=== PATIENT | female | born 1980 | race African-American/Black ===

== ENCOUNTER 2017-05-14 01:30 | Observation (INO) | payer OTHER ==
[~2017-05-14] VITALS: Ht 167.6 cm; Wt 104.2 kg
[2017-05-14 02:12] LABS: EOSINOPHIL (%) 1.7 % (0-5); EOSINOPHIL COUNT 0.1 K/uL (0-0.3); IMMATURE GRANULOCYTE (%) 0.5 % (0.0-0.7); INSTRUMENT ABS NEUTROPHIL CT 2.7 K/uL; LYMPHOCYTE COUNT 3.2 K/uL (1.0-2.8); MCH 26.8 PG (29.0-34.0); MCHC 32.1 G/DL (30.0-36.0); MCV 83.7 FL (83-99); MEAN PLAT.VOLUME 12.5 uM^3 (9.5-12.4); MONOCYTE (%) 6.3 % (3-12); MONOCYTE COUNT 0.4 K/uL (0-0.8); NEUTROPHIL (%) 41.5 % (45-76); NEUTROPHIL COUNT 2.7 K/uL (1.8-6.4); PLATELET COUNT 178 K/uL (156-360); RBC DIS.WIDTH-SD 43.2 % (39-53); RED BLOOD COUNT 4.66 M/uL (3.80-5.20); WHITE BLOOD COUNT 6.6 K/uL (4.1-10.2)
[2017-05-14 02:26] LABS: CHLORIDE 106 mEq/L (99-109); POTASSIUM 3.4 mEq/L (3.7-5.4); SODIUM 138 mEq/L (136-147)
[2017-05-14 02:28] LABS: GLUCOSE 102 mg/dL (70-99)
[2017-05-14 02:29] LABS: ANION GAP 8 MEQ/L (2-14)
[2017-05-14 02:30] LABS: TOTAL BILIRUBIN 0.4 mg/dL (0.0-1.0)
[2017-05-14 02:32] LABS: ALKALINE PHOSPHATASE 89 IU/L (3-129); GFR ESTIMATE (CALCULATED) > 59 mL/min/
[2017-05-14 02:33] LABS: TROP-I INTERPRETATION NEGATIVE; TROPONIN-I < 0.01 ng/mL (0.0-0.30); UREA NITROGEN (BUN) 12 mg/dL (9-23)
[2017-05-14 02:41] LABS: QUANTITATIVE HCG < 4.0 MIU/ML
[2017-05-14 05:28] VITALS: BP 123/72
[2017-05-14 08:45] VITALS: BP 121/91
[2017-05-14 09:34] LABS: HDL CHOLESTEROL 34 MG/DL (Desirable>=50); LDL CHOLESTEROL 94 mg/dL (Desirable<100); NON-HDL CHOLESTEROL 103 mg/dL (Desirable<160); TOTAL CHOLESTEROL 137 mg/dL (Desirable<200); TRIGLYCERIDES 43 MG/DL (Normal: <150)
[2017-05-14 09:46] LABS: TROP-I INTERPRETATION NEGATIVE; TROPONIN-I < 0.01 ng/mL (0.0-0.30)
[2017-05-14 11:00] VITALS: BP 95/57
[2017-05-14] MEDS ORDERED: PROTONIX40 MG PO (12:20)
[2017-05-14] MEDS ORDERED: POTASSIUM CHLO10 ME4 PO (12:21)
[2017-05-14] MEDS ORDERED: HYZAAR 100-11 TABLET PO (12:21)
[2017-05-14] MEDS ORDERED: TYLENOL EXTRA500 MG PO (12:23)
[2017-05-14] MEDS ORDERED: FLOVENT DISKUS1 DIS2 IH (12:23)
[2017-05-14] MEDS ORDERED: FLONASE16 G1 BOTH NARES (12:23)
[2017-05-14] MEDS ORDERED: ADVIL200 MG PO (12:24)
[2017-05-14 15:19] LABS: TROP-I INTERPRETATION NEGATIVE; TROPONIN-I < 0.01 ng/mL (0.0-0.30)
[2017-05-14] MEDS ORDERED: ASPIR-LOW81 MG PO (16:26)
[2017-05-14] MEDS ORDERED: NITROSTAT0.4 MG SL (16:26)
== END 2017-05-14 17:23 | disposition home or self-care (01) ==
LOC: EME 01:30 → EDOF 04:32 → ENRESERV 04:35 → 5WEST 05:11
PROVIDERS: Emergency Medicine; Physician Assistant Medical
DX: R07.9 Chest pain, unspecified (principal); I10 Essential (primary) hypertension; J45.909 Unspecified asthma, uncomplicated; F32.9 Major depressive disorder, single episode, unspecified; K50.90 Crohn's disease, unspecified, without complications; E66.01 Morbid (severe) obesity due to excess calories; Z68.37 Body mass index [BMI] 37.0-37.9, adult; Z82.49 Family history of ischemic heart disease and other diseases of the circulatory system; Z83.3 Family history of diabetes mellitus; Z80.1 Family history of malignant neoplasm of trachea, bronchus and lung; Z82.3 Family history of stroke; Z87.891 Personal history of nicotine dependence
CPT/HCPCS: 71020; 71275; 80053; 80061; 84484; 84702; 85025; 85379; 93005; 99281; 99285; G0378; J1650